=== PATIENT | male | born 1975 | race Caucasian/White ===

== ENCOUNTER 2020-10-10 08:03 | Day surgery (SDC) | payer OTHER ==
[2020-10-09 13:46] VITALS: BMI 31.8
[2020-10-10] MEDS ORDERED: AFRIN NASAL MIST 15 ML BOT ONE ×2 (08:26→09:25)
[2020-10-10] MEDS ORDERED: Rocuronium Bromide 10 MG/ML (10ML VIAL) ONE (09:06)
[2020-10-10] MEDS ORDERED: Dexamethasone 20 MG/5 ML VIAL ONE (09:06)
[2020-10-10] MEDS ORDERED: Ondansetron PF 4 MG/2 ML Vial ONE (09:06)
[2020-10-10] MEDS ORDERED: Lidocaine 1% PF 5 ML VIAL ONE (09:06)
[2020-10-10] MEDS ORDERED: PROPOFOL 200 MG/20 ML VIAL ONE (09:06)
[2020-10-10] MEDS ORDERED: Lidocaine 1% w/Epinephrine 1:100K 20 ML VIAL ONE (09:25)
[2020-10-10] MEDS ORDERED: Midazolam HCl 2 mg/2 ml Vial ONE (09:29)
[2020-10-10] MEDS ORDERED: Fentanyl 100 MCG/2 ML VIAL ONE ×3 (09:29→11:43)
[2020-10-10] MEDS ORDERED: Meperidine HCl/PF 25 MG/ML VIAL ONE (10:42)
[2020-10-10] MEDS ORDERED: HYDROcodone/Acetaminophen 5/325 mg Tablet ONE (12:30)
[2020-10-10] MEDS ORDERED: Morphine 2 MG/ML VIAL ONE (12:30)
--- NOTE | 2020-10-11 13:14 | OP ---
DATE OF PROCEDURE: 10/10/2020 PREOPERATIVE DIAGNOSES: 1. Obstructive sleep apnea. 2. Nasal obstruction. 3. Bilateral nasal wall collapse. 4. Bilateral inferior turbinate hypertrophy. 5. Adenoid hypertrophy. 6. Uvula hypertrophy. POSTOPERATIVE DIAGNOSES: 1. Obstructive sleep apnea. 2. Nasal obstruction. 3. Bilateral nasal wall collapse. 4. Bilateral inferior turbinate hypertrophy. 5. Adenoid hypertrophy. 6. Uvula hypertrophy. PROCEDURES PERFORMED: 1. Bilateral repair of lateral nasal wall collapse. 2. Bilateral inferior turbinate submucosal resection. 3. Adenoidectomy. 4. Uvulectomy. ESTIMATED BLOOD LOSS: Less than 5 mL. COMPLICATIONS: None. ANESTHESIA: GETA. DESCRIPTION OF PROCEDURE: The patient was taken to the operating room and placed supine on the table. General endotracheal anesthesia was obtained by the Anesthesia staff. The Maik-Juan mouth gag was introduced in the oral cavity and was retracted. The uvula was excessively long measuring up to 3 to 4 cm. A red Chandana-Janice was placed through the nasal cavity and was retracted into the oral cavity to provide elevation of the soft palate, so the adenoid nasopharynx could be visualized. The laryngeal mirror was used to indirectly visualize the adenoid pad, which was noted to be markedly enlarged. The suction Bovie device was used along with the adenoid curette to remove the successive adenoid tissue. Hemostasis was then controlled using the Bovie electrocautery. Cool saline was then irrigated through the nasal cavity and suctioned through the oral cavity. Following this, the red Chandana-Janice was removed and the excessive portions of the uvula were then resected using the Bovie electrocautery. The mucosal edges were reapproximated with a 3-0 chromic gut stitch. Following this, the submucosal microdebrider wand was inserted into the anterior and inferior side of the inferior turbinates bilaterally. Submucosal resection was performed of the inferior turbinates bilaterally. Following this, the approach to the lateral nasal wall and nasal bones was taken from an endonasal incision. The periosteum overlying the nasal bones bilaterally was elevated and an implant was placed overlying the nasal bones and underlying the lower lateral cartilages providing support to the lower lateral cartilages inferiorly. This procedure was performed bilaterally. The patient tolerated the procedure well. Job ID: [id number]
== END 2020-10-10 13:15 | disposition home or self-care (01) ==
LOC: SDC 08:03
PROVIDERS: ATTEND Otolaryngology Plastic Surgery within the Head & Neck
PROC: 09TL7ZZ Resection of Nasal Turbinate, Via Natural or Artificial Opening (ICD-10-PCS; principal; 2020-10-10)
PROC: 09QK0ZZ Repair Nasal Mucosa and Soft Tissue, Open Approach (ICD-10-PCS; principal; 2020-10-10)
PROC: 0CTQXZZ Resection of Adenoids, External Approach (ICD-10-PCS; principal; 2020-10-10)
PROC: 0CTNXZZ Resection of Uvula, External Approach (ICD-10-PCS; principal; 2020-10-10)
DX: J34.3 Hypertrophy of nasal turbinates (principal); J35.2 Hypertrophy of adenoids; K13.79 Other lesions of oral mucosa; J34.89 Other specified disorders of nose and nasal sinuses; G47.33 Obstructive sleep apnea (adult) (pediatric); I10 Essential (primary) hypertension; E03.9 Hypothyroidism, unspecified; E66.9 Obesity, unspecified; Z68.31 Body mass index [BMI] 31.0-31.9, adult; Z79.811 Long term (current) use of aromatase inhibitors; Z79.899 Other long term (current) drug therapy
CPT/HCPCS: 88302; J1100; J2175; J2250; J2405; J2704; J3010